=== PATIENT | male | born 1955 | race Two or more races ===

== ENCOUNTER 2024-12-14 10:45 | Inpatient (IN) | payer OTHER ==
[~2024-12-14] VITALS: Ht 30.5 cm; Wt 99.8 kg
[2024-12-14 14:33] VITALS: BP 138/86
[2024-12-20] MEDS ORDERED: CEFTRIAXONE SODIUM 2,000 MG VIAL ONE (11:27)
[2024-12-20] MEDS ORDERED: METRONIDAZOLE/SODIUM CHLORIDE 500 MG/100 ML PIGGYBACK IV ONE ×3 (11:27→18:47)
[2024-12-20] MEDS ORDERED: CEFTRIAXONE SODIUM 2,000 MG VIAL IV ONE (13:00)
[2024-12-20] MEDS ORDERED: ACETAMINOPHEN 500 MG GEL..CAP PO PRN (14:00)
[2024-12-20] MEDS ORDERED: INSULIN LISPRO 1,000 UNIT/10 ML UNITS SUBCUTANEO PRN (14:00)
[2024-12-20] MEDS ORDERED: ENALAPRILAT DIHYDRATE 1.25 MG/ML VIAL IV PRN (14:00)
[2024-12-20] MEDS ORDERED: DEXTROSE 50 % IN WATER 0.5 G/ML VIAL IV PRN (14:00)
[2024-12-20] MEDS ORDERED: MORPHINE SULFATE 4 MG/ML CARTRIDGE IV PRN (15:30)
[2024-12-20] MEDS ORDERED: 0.9 % SODIUM CHLORIDE 1,000 ML IV SCH (15:30)
[2024-12-20] MEDS ORDERED: OxyCODONE HCL 5 MG TABLET (ROXICODONE) PO PRN (15:30)
[2024-12-20] MEDS ORDERED: ONDANSETRON HCL 2 MG/ML VIAL IV PRN (15:30)
[2024-12-20] MEDS ORDERED: DEXTROSE 50 % IN WATER 0.5 G/ML DISP.SYRIN IV PRN (15:30)
[2024-12-20] MEDS ORDERED: SUGAMMADEX SODIUM 200 MG/2 ML VIAL IV ONE (15:45)
[2024-12-20] MEDS ORDERED: MORPHINE SULFATE 4 MG/ML VIAL IV ONE ×2 (16:25→17:10)
[2024-12-20] MEDS ORDERED: HYOSCYAMINE SULFATE 0.125 MG TAB.SUBL SL SCH (17:00)
[2024-12-20] MEDS ORDERED: GABAPENTIN 300 MG CAPSULE PO SCH (17:00)
[2024-12-20] MEDS ORDERED: IPRATROPIUM/ALBUTEROL SULFATE 3 ML AMPUL.NEB IH SCH (17:00)
[2024-12-20] MEDS ORDERED: POLYETHYLENE GLYCOL 3350 17 GM BLIST.PACK PO SCH (17:00)
[2024-12-20] MEDS ORDERED: METRONIDAZOLE/SODIUM CHLORIDE 500 MG/100 ML PIGGYBACK IV SCH (17:00)
[2024-12-20 19:41] LABS: BASO % 0.4 % (0.1-1.2); EOS # 0.02 (0.04-0.54); EOS % 0.1 % (0.7-7.0); HEMATOCRIT 52.7 % (40.1-51.0); HEMOGLOBIN 18.5 g/dL (13.7-17.5); LYMPH # 1.13 (1.18-3.74); MONO # 0.76 (0.24-0.82); MONO % 5.4 % (4.7-12.5); NEUT # 12.08 (1.56-6.13); NEUT % 85.7 % (34.0-71.1); PLATELET COUNT 220 K/uL (163-369); RED BLOOD COUNT 6.17 M/uL (4.63-6.08); RED CELL DISTRIBUTION WIDTH 15.1 % (11.6-14.4)
[2024-12-20] MEDS ORDERED: ACETAMINOPHEN 500 MG GEL..CAP PO SCH (20:00)
[2024-12-20 20:06] LABS: ALBUMIN 3.9 gm/dL (3.4-5.0); CALCIUM 9.2 mg/dL (8.5-10.1); CREATININE SERUM 1.34 mg/dL (0.70-1.30); GFR 53.33; MAGNESIUM 1.8 mg/dL (1.8-2.4); PHOSPHOROUS 3.6 mg/dL (2.5-4.9); POTASSIUM 4.16 mEq/L (3.5-5.1)
[2024-12-20 20:30] VITALS: BP 168/68; O2SAT 95
[2024-12-20] MEDS ORDERED: CELECOXIB 200 MG CAPSULE PO SCH (21:00)
[2024-12-20] MEDS ORDERED: FAMOTIDINE/PF 20 MG/2 ML VIAL IV PUSH SCH (21:00)
[2024-12-21 06:42] LABS: BASO % 0.5 % (0.1-1.2); EOS # 0.14 (0.04-0.54); EOS % 0.9 % (0.7-7.0); HEMATOCRIT 49.6 % (40.1-51.0); HEMOGLOBIN 17.6 g/dL (13.7-17.5); LYMPH # 1.14 (1.18-3.74); LYMPH % 7.6 % (19.3-53.1); MEAN CORPUSCULAR HEMOGLOBIN 29.7 pg (25.6-32.2); MONO # 0.83 (0.24-0.82); MONO % 5.6 % (4.7-12.5); NEUT # 12.67 (1.56-6.13); PLATELET COUNT 205 K/uL (163-369); RED BLOOD COUNT 5.92 M/uL (4.63-6.08); RED CELL DISTRIBUTION WIDTH 14.6 % (11.6-14.4)
[2024-12-21 07:23] LABS: ALBUMIN 3.4 gm/dL (3.4-5.0); CALCIUM 8.5 mg/dL (8.5-10.1); CREATININE SERUM 1.15 mg/dL (0.70-1.30); GFR 63.62; MAGNESIUM 1.9 mg/dL (1.8-2.4); POTASSIUM 3.85 mEq/L (3.5-5.1)
[2024-12-21 07:30] VITALS: BP 145/84; O2SAT 95
[2024-12-21] MEDS ORDERED: PATIENTS OWN MEDICATION (MEDICAMENTO EN PISO) PO SCH (09:00)
[2024-12-21] MEDS ORDERED: ENOXAPARIN SODIUM 40 MG/0.4 ML SYRINGE SUBCUTANEO SCH (17:00)
[2024-12-21] MEDS ORDERED: LEVALBUTEROL HCL 0.63 MG/3 ML SOLUTION IH SCH (21:00)
[2024-12-22 02:39] VITALS: BP 126/66; O2SAT 94
[2024-12-22] MEDS ORDERED: ATENOLOL 50 MG TABLET PO SCH (09:00)
[2024-12-22] MEDS ORDERED: PATIENTS OWN MEDICATION (MEDICAMENTO EN PISO) PO SCH (09:00)
[2024-12-22] MEDS ORDERED: ENOXAPARIN SODIUM 40 MG/0.4 ML SYRINGE SUBCUTANEO SCH (09:00)
[2024-12-22 09:51] VITALS: BP 122/74; O2SAT 100
[2024-12-22 16:00] VITALS: BP 172/95; O2SAT 95
[2024-12-23 01:10] VITALS: BP 144/80; O2SAT 96
[2024-12-23 08:50] VITALS: BP 151/84; O2SAT 95
[2024-12-23] MEDS ORDERED: SODIUM CHLORIDE 0.45 % 1,000 ML IV SCH (10:45)
[2024-12-23 16:00] VITALS: BP 156/92; O2SAT 95
== END 2024-12-23 19:29 | disposition home or self-care (01) | DRG 331 ==
LOC: SURG 12-20 07:00 → O/R 12-20 11:32 → SURG 12-20 17:04
PROVIDERS: ADMIT Surgery; ATTEND Surgery
PROC: 0DBP4ZZ Excision of Rectum, Percutaneous Endoscopic Approach (ICD-10-PCS; 2024-12-20)
PROC: 0DNW4ZZ Release Peritoneum, Percutaneous Endoscopic Approach (ICD-10-PCS; 2024-12-20)
PROC: 0DJD8ZZ Inspection of Lower Intestinal Tract, Via Natural or Artificial Opening Endoscopic (ICD-10-PCS; 2024-12-20)
PROC: 0DTN4ZZ Resection of Sigmoid Colon, Percutaneous Endoscopic Approach (ICD-10-PCS; principal; 2024-12-20 07:00)
DX: K57.20 Diverticulitis of large intestine with perforation and abscess without bleeding (principal); R10.32 Left lower quadrant pain; J44.9 Chronic obstructive pulmonary disease, unspecified; I11.9 Hypertensive heart disease without heart failure